=== PATIENT | female | born 1945 | race Caucasian/White ===

== ENCOUNTER 2019-12-15 12:26 | Emergency (ER) | payer MEDICARE, OTHER ==
[~2019-12-15] VITALS: Ht 165.1 cm; Wt 103.7 kg
[2019-12-15 12:31] VITALS: BP 145/72
--- NOTE | 2019-12-15 12:51 | NUR ---
PT CAME IN CO OF BRIGHT RED BLOOD COMING FROM HER RECTUM. PT SAYS "IT STARTED THIS MORNING AND IT FELT LIKE IT WAS A CONSTANT FLOW FROM MY BUTT". PT WENT TO AND WAS TOLD TO COME HERE. PT DENIES ABD PAIN, NAUSEA, DIZZINESS OR ANY OTHER SYMPTOMS. PT IS RESTING IN [facility]. VSS. NAD.
== END 2019-12-15 13:30 | disposition home or self-care (01) ==
LOC: ED 13:09
DX: K62.5 Hemorrhage of anus and rectum (principal); K60.0 Acute anal fissure; I10 Essential (primary) hypertension; E11.9 Type 2 diabetes mellitus without complications
CPT/HCPCS: 99282